=== PATIENT | female | born 1985 | race Two or more races ===

== ENCOUNTER 2018-02-16 10:13 | Inpatient (IN) | payer OTHER ==
[~2018-02-16] VITALS: Ht 154.9 cm; Wt 3.6 kg
[2018-02-16] MEDS ORDERED: PRENATAL TABLE1 EAC2 PO (10:26)
[2018-02-19] MEDS ORDERED: NABUMETONE750 MG PO (14:55)
[2018-02-19] MEDS ORDERED: ACETAMINOPHEN500 M1 PO (14:55)
[2018-02-19] MEDS ORDERED: DOCUSATE SODIU100 MG PO (14:56)
== END 2018-02-19 15:00 | DRG 766 ==
LOC: LDR 10:13 → OB/GYN 02-17 18:53
PROVIDERS: Obstetrics & Gynecology
PROC: 3E0P7VZ Introduction of Hormone into Female Reproductive, Via Natural or Artificial Opening (ICD-10-PCS; 2018-02-17)
PROC: 3E033VJ Introduction of Other Hormone into Peripheral Vein, Percutaneous Approach (ICD-10-PCS; 2018-02-17)
PROC: 4A1HXCZ Monitoring of Products of Conception, Cardiac Rate, External Approach (ICD-10-PCS; 2018-02-17)
PROC: 10D00Z1 Extraction of Products of Conception, Low, Open Approach (ICD-10-PCS; principal; 2018-02-17 14:00)
DX: O61.0 Failed medical induction of labor (principal); O99.02 Anemia complicating childbirth; Z3A.39 39 weeks gestation of pregnancy; Z37.0 Single live birth; O09.513 Supervision of elderly primigravida, third trimester

== ENCOUNTER 2022-04-30 15:57 | Outpatient (CLI) | payer OTHER ==
[~2022-04-30 15:57] MED LIST: ACETAMINOPHEN500 M1 PO; DOCUSATE SODIU100 MG PO; NABUMETONE750 MG PO; PRENATAL TABLE1 EAC2 PO
== END 2022-04-30 16:49 | disposition home or self-care (01) ==
LOC: NST 15:57
PROVIDERS: ATTEND Obstetrics & Gynecology
DX: Z34.83 Encounter for supervision of other normal pregnancy, third trimester (principal)

== ENCOUNTER 2022-06-08 14:24 | Inpatient (IN) | payer OTHER ==
[~2022-06-08] VITALS: Ht 154.9 cm; Wt 2.7 kg
[2022-06-16] MEDS ORDERED: PRENATAL + DHA1 EAC1 PO (08:41)
== END 2022-06-18 11:42 | disposition home or self-care (01) | DRG 788 ==
LOC: O/R 06-16 07:12 → LDR 06-16 08:30 → OB/GYN 06-16 13:15 → LDR 06-16 14:22 → OB/GYN 06-18 11:42
PROVIDERS: ADMIT Obstetrics & Gynecology; ATTEND Obstetrics & Gynecology
PROC: 4A1HXCZ Monitoring of Products of Conception, Cardiac Rate, External Approach (ICD-10-PCS; 2022-06-16)
PROC: 10D00Z1 Extraction of Products of Conception, Low, Open Approach (ICD-10-PCS; principal; 2022-06-16 08:30)
DX: O34.211 Maternal care for low transverse scar from previous cesarean delivery (principal); Z3A.40 40 weeks gestation of pregnancy; Z37.0 Single live birth; Z20.822 Contact with and (suspected) exposure to COVID-19